=== PATIENT | female | born 1970 | race Asian ===

== ENCOUNTER 2018-08-07 20:26 | Emergency (ER) | payer OTHER ==
[~2018-08-07] VITALS: Ht 157.5 cm; Wt 81.0 kg
[2018-08-07] MEDS ORDERED: IBUPROFEN 800 MG TABLET PO ONE (21:30)
[2018-08-07 22:43] VITALS: BP 113/74
== END 2018-08-07 22:54 | disposition home or self-care (01) ==
LOC: EMS 20:27
DX: M54.12 Radiculopathy, cervical region (principal); F17.210 Nicotine dependence, cigarettes, uncomplicated
CPT/HCPCS: 72040; 93005

== ENCOUNTER 2019-04-03 11:23 | Emergency (ER) | payer OTHER ==
[~2019-04-03] VITALS: Ht 157.5 cm; Wt 80.9 kg
[2019-04-03] MEDS ORDERED: NAPR-1024 PO (11:45)
[2019-04-03] MEDS ORDERED: BACL10TA PO (11:45)
[2019-04-03 14:00] VITALS: BP 141/82
[2019-04-03] MEDS ORDERED: TraMADol HCL 50 MG TABLET PO ONE (14:00)
== END 2019-04-03 14:50 | disposition home or self-care (01) ==
LOC: EMS 11:24
DX: M25.512 Pain in left shoulder (principal); R03.0 Elevated blood-pressure reading, without diagnosis of hypertension; F17.210 Nicotine dependence, cigarettes, uncomplicated; Z79.899 Other long term (current) drug therapy